=== PATIENT | male | born 1980 | race Caucasian/White ===

== ENCOUNTER → 2018-11-17 | Outpatient (CLI) | payer BC ==
--- NOTE | 2018-11-18 08:53 | REP ---
MRI LEFT KNEE WITHOUT CONTRAST: 11/17/2018. Clinical history: Knee pain, subluxation of the patella. Technique: Coronal and sagittal PD and fat suppressed T2 sequences in axial and T2 sequences provided. Study is limited due to use of surface coil required by body habitus and various artifacts including wraparound which were unavoidable. Unfortunately the axial views are severely limited anteriorly, almost nondiagnostic. Medial and lateral compartments show no joint space narrowing. I see only minimal grade 1 chondromalacia. Medial lateral menisci are without definite evidence of a tear. I see no loose body in the medial compartment. There is no bone bruise or fracture about the tibial plateau or femoral condyles. Lateral collateral ligaments were grossly intact. The ACL and PCL show contiguous fibers without gross tear. There is a small amount of fluid in the posterior aspect of the intercondylar notch. There is no popliteal fossa cyst. There is evidence suggesting a patellar subluxation laterally. There is a short steeply angled medial facet and an elongated flattened lateral facet of the patella. This is a Wiberg type 3 patellar morphology. No gross tear of the quadriceps and patellar tendons. There is a large suprapatellar effusion with a lateral suprapatellar plica. Thickening of the lateral patellar retinaculum. Lateral collateral ligamentous complex, some mild strain. The medial patellar retinaculum cannot be readily visualized, I suggest some strain. The medial collateral ligamentous complex is preserved. No popliteal fossa cyst. IMPRESSION: 1. Quite limited exam anteriorly due to body habitus considerations and artifact of imaging related to that. The menisci without gross tear in the cruciate ligaments. Large suprapatellar effusion in the lateral suprapatellar bursa were grossly intact. 2. Lateral collateral ligament with some strain and thickening strain noted in the lateral patellar retinaculum. 3. The MCL not well defined and no gross tear but the medial patellar retinaculum is very poorly visualized due to the imaging artifact. 4. No bone bruise or fracture visible. There is no significant chondromalacia or osteochondral defect. 5. Large joint effusion with lateral suprapatellar plica. Electronically Signed by Benjamin Thomas MD 11/18/2018 09:12 P
== END ==
LOC: M RAD 06:51
PROVIDERS: ATTEND Physician Assistant
DX: M25.462 Effusion, left knee (principal); M22.42 Chondromalacia patellae, left knee; M67.52 Plica syndrome, left knee; S82.035A Nondisplaced transverse fracture of left patella, initial encounter for closed fracture; Y92.9 Unspecified place or not applicable; Y93.9 Activity, unspecified

== ENCOUNTER → 2019-06-04 | Outpatient (REF) | LOC: M LAB LCGH 13:24 | PROVIDERS: ATTEND Internal Medicine Pulmonary Disease | DX: Z00.00 Encounter for general adult medical examination without abnormal findings (principal) ==